=== PATIENT | female | born 1990 | race African-American/Black ===

== ENCOUNTER 2017-09-20 17:02 | Emergency (ER) | payer OTHER ==
--- NOTE | 2017-09-20 19:24 | RAD ---
CT head without contrast. Maxillofacial CT without contrast. HISTORY: Right orbital pain, right facial pain and swelling, right temporal pain, aplastic anemia. TECHNIQUE: Noncontrast CT imaging of the head and facial bones was acquired. CT head findings: No intracranial hemorrhage, mass, hydrocephalus, extra-axial fluid collections or infarction. Right facial and periorbital soft tissue edema. Orbits, mastoids, paranasal sinuses and bones are unremarkable. IMPRESSION: No acute intracranial CT abnormality. Maxillofacial CT findings: Bony orbits intact. Facial bones intact. Maxilla and mandible intact. There is right facial soft tissue edema and periorbital soft tissue edema. There is no post septal orbital edema or hematoma evident. The right lateral soft tissues overlying the zygoma there is a 1 cm nodular density is uncertain if this is a small hematoma versus an early abscess or neoplastic nodule. Paranasal sinuses are well-aerated. IMPRESSION: 1. Right facial and periorbital soft tissue edema likely cellulitis given the absence of trauma. There is a 1 cm nodular density lateral of the zygoma which could be hematoma, abscess or neoplastic nodule. 2. Facial bones and bony orbits intact. Exposure: One or more of the following individualized dose reduction techniques were utilized for this examination: 1. Automated exposure control 2. Adjustment of the mA and/or kV according to patient size 3. Use of iterative reconstruction technique Electronically signed by: Az August MD (09/20/2017 7:22 PM) [facility]
[2017-09-20 19:41] LABS: BASO % 0 % (0-3); EOS % 0 % (0-3); HEMATOCRIT 29.4 % (36.0-47.0); HEMOGLOBIN 10.4 g/dL (12.0-15.5); LYMPH # 1.6 x10^3/uL (1.0-4.8); LYMPH % 66 % (24-48); MEAN CORPUSCULAR HEMOGLOBIN 41 pg (25-35); MEAN CORPUSCULAR HGB CONC 35 g/dL (31-37); MEAN CORPUSCULAR VOLUME 115 fL (79-100); MONO # 0.1 x10^3/uL (0.0-1.1); MONO % 4 % (0-9); NEUT # 0.8 x10^3uL (1.8-7.7); NEUT % 30 % (31-73); PLATELET COUNT 28 x10^3/uL (140-400); RED BLOOD COUNT 2.56 x10^6/uL (3.50-5.40); RED CELL DISTRIBUTION WIDTH 23.5 % (11.5-14.5); WHITE BLOOD COUNT 2.5 x10^3/uL (4.0-11.0)
[2017-09-20 19:44] LABS: CALCIUM 9.7 mg/dL (8.5-10.1); GFR 81.1; POTASSIUM 3.3 mmol/L (3.5-5.1)
--- NOTE | 2017-09-20 19:44 | PHYS DOC ---
General Chief Complaint: EYE PROBLEMS Stated Complaint: EYE PAIN Time Seen by MD: 18:39 Source: patient Exam Limitations: no limitations Problems: History of Present Illness Initial Comments 26-year-old female with history of aplastic anemia comes to the ED complaining of right eye and face pain. Patient states that she awoke today with swelling above and below her right eye , complains of pain with extraocular motion in the right eye no vision changes. She also complains of discoloration of the sclera at the lateral portion denies any injury or assault. No fever chills sweats or myalgias patient receives treatment every other week for aplastic anemia. Timing/Duration: this morning Severity: mild Location: eye (R) Prearrival Treatment: no prearrival treatment Modifying Factors: improves with other Associated Symptoms: other Allergies: Coded Allergies: diphenhydramine (Verified Allergy, Unknown, 09/20/17) vancomycin (Verified Allergy, Unknown, 09/20/17) Past Medical History Medical History: other (aplastic anemia) Surgical History: noncontributory Social History Smoker: non-smoker Alcohol: none Drugs: none Constitutional: denies chills, denies fever, denies malaise Eyes: see HPI, denies blindness, denies blurred vision, denies drainage, denies decreased acuity, denies foreign body sensation, denies photophobia, denies shadows, denies tunnel vision, denies vision change, denies contact lenses Ears: denies dizziness, denies pain Nose: denies clots, denies congestion Respiratory: denies cough, denies shortness of breath Cardiovascular: denies chest pain, denies palpitations Gastrointestinal: denies nausea, denies vomiting Physical Exam General Appearance: WD/WN, no apparent distress Eyes: right eye other (mild swelling and tenderness at the supra and infraorbital tissues, lateral subconjunctival hemorrhage noted), left eye normal inspection, bilateral eye PERRL, bilateral eye EOMI Nose: normal inspection Mouth/Throat: normal mouth inspection Neck: non-tender, supple Cardiovascular/Respiratory: normal breath sounds, no respiratory distress Neurologic/Psychiatric: purler II-XII nml as tested, alert, oriented x 3 Orders, Labs, Meds WBC 2.5, hemoglobin 10.4, platelets 28, potassium 3.3 PATIENT: SAM NORMAN ACCOUNT: [id number] : 1990 LOCATION: ER AGE: 26 SEX: F EXAM STATUS: REG ER ORD. PHYSICIAN: JAYCOB REDDY DO REASON: R facial swell/pain with R EOM, h/o aplastic anemia deny trauma PROCEDURE: CT HEAD AND MAXILLOFACIAL WO CT head without contrast. Maxillofacial CT without contrast. HISTORY: Right orbital pain, right facial pain and swelling, right temporal pain, aplastic anemia. TECHNIQUE: Noncontrast CT imaging of the head and facial bones was acquired. CT head findings: No intracranial hemorrhage, mass, hydrocephalus, extra-axial fluid collections or infarction. Right facial and periorbital soft tissue edema. Orbits, mastoids, paranasal sinuses and bones are unremarkable. IMPRESSION: No acute intracranial CT abnormality. Maxillofacial CT findings: Bony orbits intact. Facial bones intact. Maxilla and mandible intact. There is right facial soft tissue edema and periorbital soft tissue edema. There is no post septal orbital edema or hematoma evident. The right lateral soft tissues overlying the zygoma there is a 1 cm nodular density is uncertain if this is a small hematoma versus an early abscess or neoplastic nodule. Paranasal sinuses are well-aerated. IMPRESSION: 1. Right facial and periorbital soft tissue edema likely cellulitis given the absence of trauma. There is a 1 cm nodular density lateral of the zygoma which could be hematoma, abscess or neoplastic nodule. 2. Facial bones and bony orbits intact. Exposure: One or more of the following individualized dose reduction techniques were utilized for this examination: 1. Automated exposure control 2. Adjustment of the mA and/or kV according to patient size 3. Use of iterative reconstruction technique Electronically signed by: Marshall August MD (09/20/2017 7:22 PM) [facility] DICTATED AND SIGNED BY: MARSHALL AUGUST MD DATE: 09/20/171914 CC: PCP,MARTHA; JAYCOB REDDY DO ~ The patient has been asking about her results she has grown impatient and is ready to leave. I discussed findings, prescription and [id number] medications patient expressed agreement and understanding. Departure Time of Disposition: 21:11 Disposition: 01 HOME, SELF-CARE Diagnosis: periorbital cellulitis, hypokalemia, aplastic anem Condition: GOOD Patient Instructions: Hypokalemia-Brief, Periorbital Cellulitis Additional Instructions: Please review the patient education materials given by ED staff. Cool compresses 3 times daily. Eat one banana daily to support potassium. Prescription: Cephalexin, Bactrim DS, Stringer 5mg #20 Take meds with food. Follow-up with your doctor upon completion of antibiotics for recheck and to follow-up on suspicious nodule noted on CT. Return to ED with new or changing symptoms. JAYCOB REDDY DO Sep 20, 2017 19:44
[2017-09-20] MEDS ORDERED: SULF1TAB24 PO (21:11)
[2017-09-20] MEDS ORDERED: CEPH500T PO (21:11)
[2017-09-20] MEDS ORDERED: CEPHALEXIN 250 MG CAPSULE PO ONE (21:15)
[2017-09-20] MEDS ORDERED: SMZ/TMP 800/160MG TABLET. PO ONE (21:15)
[2017-09-20] MEDS ORDERED: HYDR-971 PO (21:18)
[2017-09-20] MEDS ORDERED: HYDROcodone/APAP 5/325MG 1 TAB TABLET ONE (21:23)
[2017-09-20] MEDS ORDERED: HYDROcodone/APAP 5/325MG 1 TAB TABLET PO ONE (21:30)
[2017-09-20 21:31] VITALS: BP 117/76
[2017-09-21 00:09] LABS: % BANDS 1 % (0-9); % LYMPHS 64 % (24-48); % MONOS 2 % (0-10); % SEGS 33 % (35-66); PLT ESTIMATE DECREASED (ADEQUATE)
[2017-09-21 00:10] LABS: ANISOCYTOSIS MOD; POIKILOCYTOSIS SLIGHT
[2017-09-21 00:11] LABS: POLYCHROMASIA MOD; ROULEAUX PRESENT
[2017-09-21 00:12] LABS: HYPOCHROMIA MOD; TOXIC GRANULATION SLIGHT
== END 2017-09-20 21:32 | disposition home or self-care (01) ==
LOC: ER 17:02
DX: L03.213 Periorbital cellulitis (principal); E87.6 Hypokalemia; D61.9 Aplastic anemia, unspecified; Z88.1 Allergy status to other antibiotic agents; Z88.8 Allergy status to other drugs, medicaments and biological substances
CPT/HCPCS: 36415; 70450; 70486; 80048; 85007; 85025; 85610; 85730; 99285-25